=== PATIENT | female | born 1985 | race Caucasian/White ===

== ENCOUNTER 2023-11-24 22:21 | Emergency (ER) | payer OTHER, SELFPAY ==
[2023-11-24 22:31] VITALS: BP 157/100
--- NOTE | 2023-11-24 23:05 | ED.GENMED ---
History of Present Illness
General
Chief Complaint: Chest Pain
Source: patient and spouse
Time Seen by Provider: 11/24/23 22:47
Travel History
Have you had any contact with someone who has COVID-19?: No
Do you have any symptoms of coronavirus? Fever > 100 degrees, chills, cough, shortness of breath, sore throat, loss of taste or smell, muscle aches, or headache?: No
History of Present Illness
History of Present Illness:
This patient is a 38-year-old female with a history of medication induced long QT who presents emergency department with complaints of an episode earlier today while in the car where she felt a 'weird' feeling in the center and left side of her
chest which was then associated with numbness and tingling throughout her left upper extremity. This lasted about 5 to 10 minutes and then went away. She further defines this weird feeling as a 'fluttering' feeling all over associated with mild
dyspnea. The symptoms went away completely and then around 1015 tonight while sitting on the couch she developed the same symptoms associated with nausea and chills. When she stood up she felt lightheaded. She says she checked her pulse and it
was 60. She is now asymptomatic. Of note, patient went for a hike yesterday, total 2.6 miles, took just under 2 hours, and she noted that her heart rate was elevated. She needed to stop to get her heart rate to go down. While it was elevated she
had a sensation that her heart was 'pounding' associated with numbness and tingling in her left arm lasting a few minutes. She did not have chest pain pressure or discomfort at that time. Patient denies radiation of today's 'weird' feeling in her
chest, it is not pleuritic in nature, she denies leg swelling, recent immobilization, recent trauma. She does note a family history of CAD but is unclear if it was before the age of 50. Patient has a history of diabetes, hypercholesterolemia, no
prior history of cardiac illness.
Past History
Past History
ED Past Medical History: IDDM, Other (Prolonged QT) and Other (Exercise-induced asthma, prediabetes on metformin, hyperlipidemia)
ED Past Surgical History: Orthopedic
Patient has exhibited threatening behavior?: No
PSI?: No
Social History
Tobacco: Non-smoker
Alcohol: Occasional
Drug: None
Personal: Single
Living: with family
Family History
Family History: Other (CHF, hypertension, diabetes, asthma)
Phy Exam
Physical Exam
Physical Exam:
GENERAL: Alert , in no apparent distress
EYE: pupils equal and reactive
NECK: Supple, no significant adenopathy.
ENT: o/p clr, mmm.
CARDIAC: Regular rate and rhythm .
LUNGS: Clear breath sounds bilaterally, no acute respiratory distress, no wheezes/rales/rhonchi
ABDOMEN: Soft, without focal tenderness, no r/g, no cvat
NEUROLOGICAL: Alert and oriented, no focal neuro deficits
SKIN: Warm and dry, skin intact.
MUSCULOSKELETAL: No edema, well perfused.
PSYCH: Normal and appropriate interaction.
Scores
Heart Score for Chest Pain Patients
STEMI patient?: Not applicable
Course
Orders/Labs/Results
Orders:
Orders
11/24/23 22:23
EKG [Electrocardiogram (*1)] Urgent
Reason for Study: Chest Pain
EKG- Treatment ONCE
11/24/23 23:05
Cardiac Monitoring- Treatment ONCE
11/24/23 23:09
Complete Blood Count/No Diff Urgent
Comprehensive Metabolic Panel Urgent
Troponin I Urgent
11/25/23 03:01
Troponin I Urgent
Abnormal Lab Results
11/24/23
23:09
Hct 35.2 L %
(37.0-47.0)
MCV 75.1 L fL
(81.0-99.0)
MCH 25.8 L pg
(27.0-31.0)
RDW 14.6 H %
(11.5-14.5)
MPV 11.0 H fL
(7.4-10.4)
Sodium 132 L mmol/L
(135-145)
Glucose 213 H mg/dl
(70-99)
11/24/23 23:09
11/24/23 23:09
Vital Signs
Initial and Last Documented VS:
Initial Vital Signs
Temp Pulse Resp BP Pulse Ox
98.4 F 85 16 157/100 99
11/24/23 22:31 11/24/23 22:31 11/24/23 22:31 11/24/23 22:31 11/24/23 22:31
Last Documented Vital Signs
Temp Pulse Resp BP Pulse Ox
98.4 F 71 16 102/69 95
11/24/23 22:31 11/25/23 04:15 11/25/23 04:15 11/25/23 04:00 11/25/23 04:15
*Critical Care Note
Total Time (30-74mins, 75-104mins- exclusive of procedures): Not Applicable
Update Note
Update Note:
Patient presents to the Emergency Department with
Number and Complexity of Problems Addressed at the Encounter
� Chronic conditions affecting care:
� Acute Exacerbation and/or Progression of Chronic Illness:
� Differential Diagnosis includes:
Amount and/or Complexity of Data to be Reviewed and Analyzed
� I performed an independent evaluation of and my interpretation is:
EKG: Read by me, normal sinus rhythm, no acute ischemia
CT:
Xrays:
Laboratory Studies:
Other:
� Review of other/old records reveals: Records from prior hospitalization for COVID reviewed by me
� Clinical information was obtained by an independent historian: who is at bedside
� Prescriptions/Medications Considered but not given:
� Further testing considered but not performed:
Risk of Complications and/or Morbidity or Mortality of Patient Management
� Social determinants of health affecting care:
� Discussion with other providers (PCP, Hospitalists, Consultants, etc):
� Escalation of care including admission/observation vs risk of discharge considered:
ED Attending Note
-
Portions of this chart may have been created with voice recognition software.� Occasional wrong word or��sound alike� substitutions may have occurred due to the inherent limitations of voice recognition software.
Discharge Plan
Departure
Patient Disposition: Home (Routine Discharge)
Date of Disposition: 11/25/23
Time of Disposition: 03:42
Patient with high blood pressure during this ER visit?: Yes
Condition: Good
Discharge Problem:
Chest pain
Instructions: BLOOD PRESSURE, Chest Pain
Prescriptions:
No Action
albuterol sulfate 1 PUFF HFA aerosol inhaler
1 puff inhalation R Q4HPRN PRN (Reason: SOB)
multivitamin with folic acid [Tab-A-Sherice] 1 TABLET tablet
1 tab PO DAILY
ibuprofen 400 MG tablet
400 mg PO Q2HPRN PRN (Reason: fever)
(DME) pen needle, diabetic [Unifine Pentips] 1 EACH needle
1 ea SC QID Qty: 150 2RF
prochlorperazine maleate [Compazine] 10 mg Tablet
10 mg PO Q6H PRN (Reason: nausea)
alprazolam 0.5 mg Tablet
0.5 mg PO PRN PRN (Reason: prior to dentist)
metformin 500 mg Tablet,Er Jason.Retention 24 Hr
2,000 mg PO BID
Referrals:
Stevenson Encinas MD [Active] - Next open appointment
Brittney Elliott PA-C [Family Provider] -
Activity Restrictions/Additional Instructions:
IF YOU DEVELOP INCREASING/NEW/RECURRENT PAIN, ANY TROUBLE BREATHING, FEVER, VOMITING, OR OTHER WORRISOME SIGNS, GO TO THE ER IMMEDIATELY!
Interventions
Interventions:
*Risk Screen - Suicide Last Done: 11/24/23 22:31
*General Assessment Last Done: 11/24/23 22:31
*Neglect/Abuse Screening Last Done: 11/24/23 22:31
ED- Fall Risk Assessment Last Done: 11/24/23 23:06
*Nursing Disposition Last Done: 11/25/23 04:26
ED- Cardiac Assessment Last Done: 11/24/23 23:06
Discharge Date and Time
Discharge Date/Time: 11/25/23 04:27
[2023-11-24 23:15] VITALS: BP 137/88
[2023-11-24 23:20] LABS: Hematocrit 35.2 % (37.0-47.0); Hemoglobin 12.1 g/dL (12.0-16.0); Mean Corp Hgb Conc. 34.4 g/dL (33.0-37.0); Mean Corpuscular Hgb 25.8 pg (27.0-31.0); Mean Corpuscular Volume 75.1 fL (81.0-99.0); Platelet Count 330 10^3/uL (130-400); Red Blood Cell Count 4.69 10^6/uL (4.20-5.40); Red Cell Dist. Width 14.6 % (11.5-14.5); White Blood Cell Count 10.7 10^3/uL (4.8-10.8)
[2023-11-24 23:33] LABS: ALT (SGPT) 30 U/L (0-35); AST (SGOT) 25 U/L (14-36); Albumin 4.3 g/dl (3.5-5.0); Alkaline Phosphatase 77 U/L (38-126); Blood Urea Nitrogen 14 mg/dl (7-17); Calcium 9.3 mg/dl (8.4-10.2); Carbon Dioxide 22 mmol/L (22-30); Chloride 103 mmol/L (98-107); Estimated Creatinine Clearance 123 ml/min; Glucose 213 mg/dl (70-99); Potassium 3.8 mmol/L (3.5-5.1); Sodium 132 mmol/L (135-145); Total Bilirubin 0.3 mg/dl (0.2-1.3); Total Protein 6.8 g/dl (6.3-8.2); eGFR > 60.00
[2023-11-24 23:48] LABS: Troponin I < 0.012 ng/ml
[2023-11-25] VITALS: BP 122/79
[2023-11-25 01:00] VITALS: BP 112/77
[2023-11-25 03:00] VITALS: BP 117/75
[2023-11-25 03:33] LABS: Troponin I < 0.012 ng/ml
[2023-11-25 04:00] VITALS: BP 102/69
== END 2023-11-25 04:27 | disposition home or self-care (01) ==
LOC: EMR 22:21
PROVIDERS: EMERGENCY PHYSICIAN Emergency Medicine; FAMILY PHYSICIAN Physician Assistant Medical
DX: R07.89 Other chest pain (principal); R20.0 Anesthesia of skin; R20.2 Paresthesia of skin; R06.00 Dyspnea, unspecified; R11.0 Nausea; R68.83 Chills (without fever); R42 Dizziness and giddiness; R03.0 Elevated blood-pressure reading, without diagnosis of hypertension; I45.81 Long QT syndrome; E11.9 Type 2 diabetes mellitus without complications; E78.5 Hyperlipidemia, unspecified; Z79.4 Long term (current) use of insulin; Z82.49 Family history of ischemic heart disease and other diseases of the circulatory system; Z88.8 Allergy status to other drugs, medicaments and biological substances
CPT/HCPCS: 99283; 80053; 84484; 85027; 93005

== ENCOUNTER 2024-05-05 10:45 | Emergency (ER) | payer OTHER, SELFPAY ==
[2024-05-05 11:02] VITALS: BP 143/81
[2024-05-05 12:02] VITALS: BP 118/73
--- NOTE | 2024-05-05 12:16 | ED.GENMED ---
History of Present Illness
General
Chief Complaint: Chest Pain
Time Seen by Provider: 05/05/24 11:25
History of Present Illness
History of Present Illness:
39-year-old female with history of diabetes and hyperlipidemia presenting to the emergency department for chest pain. Patient reports for the past few weeks she has been having chest discomfort at nighttime, and has noticed that her heart rate has
been low. Today, chest pain lasted into the day which concerned her. She called her rim buster who advised that she come to the hospital. Denies any known personal cardiac history, however has had personal cardiac history. Still her primary
care doctor regarding the symptoms, thought may be secondary to anxiety, had been started on Xanax. She has been undergoing a lot of stress at home, medical issues with daughter. Denies any history of blood clots, recent surgery, recent travel,
exogenous estrogen. Any recent illness or fever. Denies any cough. Denies abdominal pain or GI symptoms. Denies additional acute medical complaints.
Past History
Past History
ED Past Medical History: IDDM, Other (Prolonged QT) and Other (Exercise-induced asthma, prediabetes on metformin, hyperlipidemia)
ED Past Surgical History: Orthopedic
Patient has exhibited threatening behavior?: No
PSI?: No
Social History
Tobacco: Non-smoker
Alcohol: Occasional
Drug: None
Personal: Single
Living: with family
Family History
Family History: Other (CHF, hypertension, diabetes, asthma)
Phy Exam
Physical Exam
Physical Exam:
General: Well-appearing, no clinical signs of dehydration, nontoxic and in no acute distress
HEENT: protecting airway
Neck: appears supple
CV: Normal heart rate, regular rhythm, no evidence of cyanosis
Resp: No accessory muscle use, no increased work of breathing, lungs clear to auscultation bilaterally
Abd: Soft and non-distended, no tenderness to palpation
Extremities: No deformities, no swelling, no erythema
Neuro: alert, no focal neurologic deficit
: deferred
Rectal: deferred
Psych: Normal affect
Skin: Intact
Scores
Heart Score for Chest Pain Patients
STEMI patient?: No
History: Slightly or Non-Suspicious
ECG: Normal
Age: </= 45 years
Risk Factors: 1 or 2 Risk Factors
Troponin: </= Normal Limit
Heart Score for Chest Pain Patients: 1
Heart Score Risk: 2.5% MACE over next 6 weeks
Course
Orders/Labs/Results
Orders:
Orders
05/05/24 11:06
ECG [Electrocardiogram (*1)] Urgent
Reason for Study: Chest Pain
05/05/24 11:07
EKG- Treatment ONCE
05/05/24 12:06
CR Chest - 2 Views Urgent
Comment:
Reason For Exam: chest pain
05/05/24 12:10
Complete Blood Count/With Diff Urgent
Comprehensive Metabolic Panel Urgent
Troponin I Urgent
Abnormal Lab Results
05/05/24
12:10
Hct 36.7 L %
(37.0-47.0)
MCV 77.1 L fL
(81.0-99.0)
MCH 25.2 L pg
(27.0-31.0)
MCHC 32.7 L g/dL
(33.0-37.0)
RDW 14.6 H %
(11.5-14.5)
MPV 11.0 H fL
(7.4-10.4)
Glucose 170 H mg/dl
(70-99)
05/05/24 12:10
05/05/24 12:10
Vital Signs
Initial and Last Documented VS:
Initial Vital Signs
Temp Pulse Resp BP Pulse Ox
99.5 F 75 18 143/81 97
05/05/24 11:02 08/19/24 11:02 05/05/24 11:02 05/05/24 11:02 05/05/24 11:02
Last Documented Vital Signs
Temp Pulse Resp BP Pulse Ox
99.5 F 67 13 118/73 95
05/05/24 11:02 05/05/24 12:45 05/05/24 12:45 05/05/24 12:02 05/05/24 12:45
MDM/Problems Addressed
MDM/Problems Addressed:
39-year-old female with history of diabetes and hyperlipidemia presenting to the emergency department for chest pressure. Vital signs within normal limits.
On exam, patient well-appearing, no acute distress or discomfort. Benign cardiac and pulmonary exam. Patient EKG obtained prior to my assessment, nonischemic without significant change from prior. Patient however does have some cardiac risk
factors. For this reason we will obtain laboratory analysis including troponin. Patient PERC negative without concern for PE. Patient notes that she has had low heart rate at nighttime while in bed. Suspect that this could be normal while at
rest. Low suspicion for sick sinus syndrome. No significant tachycardia. Will continue to closely monitor.
13:30 -patient's labs are unremarkable, undetectable troponin. Patient low risk by heart score. At this time, feel stable for discharge, remains hemodynamically stable. Advised outpatient cardiology follow-up if symptoms are persisting for
potential stress testing versus Holter monitor. Strict return precautions communicated and patient verbalized understanding.
*EKG
Interpreted by ED Provider?: Yes
EKG Intrepretation Date: 05/05/24
EKG Intrepretation Time: 12:19
Interpretation: normal
Comparison EKG: no changes (11/24/23)
Heart Rate: 85
Rate: normal
Rhythm: sinus
[place]: normal axis
Interval: normal interval
QRS Pattern: normal QRS
Ischemia: no ischemia
*Critical Care Note
Total Time (30-74mins, 75-104mins- exclusive of procedures): Not Applicable
ED Attending Note
-
Portions of this chart may have been created with voice recognition software.� Occasional wrong word or��sound alike� substitutions may have occurred due to the inherent limitations of voice recognition software.
Discharge Plan
Departure
Prescriptions:
No Action
albuterol sulfate 1 PUFF HFA aerosol inhaler
1 puff inhalation R Q4HPRN PRN (Reason: SOB)
multivitamin with folic acid [Tab-A-Sherice] 1 TABLET tablet
1 tab PO DAILY
ibuprofen 400 MG tablet
400 mg PO Q2HPRN PRN (Reason: fever)
(DME) pen needle, diabetic [Unifine Pentips] 1 EACH needle
1 ea SC QID Qty: 150 2RF
prochlorperazine maleate [Compazine] 10 mg Tablet
10 mg PO Q6H PRN (Reason: nausea)
alprazolam 0.5 mg Tablet
0.5 mg PO PRN PRN (Reason: prior to dentist)
metformin 500 mg Tablet,Er Jason.Retention 24 Hr
2,000 mg PO BID
Referrals:
Brittney Elliott PA-C [Family Provider] -
Interventions
Interventions:
*Risk Screen - Suicide Last Done: 05/05/24 11:02
*General Assessment Last Done: 05/05/24 11:02
*Neglect/Abuse Screening Last Done: 05/05/24 11:02
ED- Fall Risk Assessment Last Done: 05/05/24 12:09
*ED COVID-19 Vaccine History Last Done: 05/05/24 12:09
ED- Cardiac Assessment Last Done: 05/05/24 12:09
Discharge Date and Time
Print Language: ARGENTINE
[2024-05-05 12:27] LABS: % Basophils 0.6 % (0-2); % Eosinophils 1.7 % (0-6); % Immature Granulocytes 0.4 % (0-0.5); % Lymphocytes 32.3 % (20.5-51.1); % Monocytes 6.3 % (1.7-9.3); % Neutrophils 58.7 % (42.2-75.2); Absolute Eosinophils 0.1 10^3/uL (0-0.7); Absolute Lymphocytes 2.3 10^3/uL (1.2-3.4); Absolute Monocytes 0.4 10^3/uL (0.1-0.6); Absolute Neutrophils 4.1 10^3/uL (1.4-6.5); Hematocrit 36.7 % (37.0-47.0); Mean Corp Hgb Conc. 32.7 g/dL (33.0-37.0); Mean Corpuscular Hgb 25.2 pg (27.0-31.0); Mean Corpuscular Volume 77.1 fL (81.0-99.0); Nucleated Red Blood Cells % 0 %; Platelet Count 287 10^3/uL (130-400); Red Blood Cell Count 4.76 10^6/uL (4.20-5.40); Red Cell Dist. Width 14.6 % (11.5-14.5)
[2024-05-05 12:51] LABS: Troponin I < 0.012 ng/ml
[2024-05-05 12:58] LABS: ALT (SGPT) 19 U/L (0-35); AST (SGOT) 19 U/L (14-36); Albumin 4.5 g/dl (3.5-5.0); Alkaline Phosphatase 63 U/L (38-126); Blood Urea Nitrogen 13 mg/dl (7-17); Calcium 9.8 mg/dl (8.4-10.2); Carbon Dioxide 25 mmol/L (22-30); Chloride 103 mmol/L (98-107); Glucose 170 mg/dl (70-99); Potassium 4.1 mmol/L (3.5-5.1); Sodium 137 mmol/L (135-145); Total Bilirubin 0.4 mg/dl (0.2-1.3); Total Protein 6.8 g/dl (6.3-8.2); eGFR > 60.00
== END 2024-05-05 13:51 | disposition home or self-care (01) ==
LOC: EMR 10:45
PROVIDERS: EMERGENCY PHYSICIAN Student in an Organized Health Care Education/Training Program; FAMILY PHYSICIAN Physician Assistant Medical
DX: R07.89 Other chest pain (principal); E11.9 Type 2 diabetes mellitus without complications; E78.5 Hyperlipidemia, unspecified; Z73.3 Stress, not elsewhere classified; Z63.8 Other specified problems related to primary support group; J45.998 Other asthma; Z79.4 Long term (current) use of insulin; Z88.8 Allergy status to other drugs, medicaments and biological substances
CPT/HCPCS: 99283; 71046; 80053; 84484; 85025; 93005

== ENCOUNTER → 2024-08-05 09:49 | Outpatient (REF) | payer OTHER, SELFPAY | LOC: RCS 09:49 | PROVIDERS: ATTENDING PHYSICIAN Physician Assistant Medical; FAMILY PHYSICIAN Physician Assistant Medical | DX: R07.9 Chest pain, unspecified (principal); E11.9 Type 2 diabetes mellitus without complications; E78.2 Mixed hyperlipidemia | CPT/HCPCS: 93017; 93350 ==

== ENCOUNTER 2025-01-28 20:05 | Emergency (ER) | payer OTHER, SELFPAY ==
[2025-01-28 20:09] VITALS: BP 165/86; BMI 34.6
[2025-01-28 20:29] LABS: % Basophils 0.5 % (0-2); % Eosinophils 2.3 % (0-6); % Immature Granulocytes 0.3 % (0-0.5); % Lymphocytes 34.8 % (20.5-51.1); % Monocytes 6.4 % (1.7-9.3); % Neutrophils 55.7 % (42.2-75.2); Absolute Basophils 0.1 10^3/uL (0-0.2); Absolute Eosinophils 0.3 10^3/uL (0-0.7); Absolute Lymphocytes 3.8 10^3/uL (1.2-3.4); Absolute Monocytes 0.7 10^3/uL (0.1-0.6); Absolute Neutrophils 6.1 10^3/uL (1.4-6.5); Hematocrit 34.8 % (37.0-47.0); Hemoglobin 11.2 g/dL (12.0-16.0); Mean Corp Hgb Conc. 32.2 g/dL (33.0-37.0); Mean Corpuscular Hgb 24.1 pg (27.0-31.0); Mean Platelet Volume 11.1 fL (7.4-10.4); Nucleated Red Blood Cells % 0 %; Platelet Count 312 10^3/uL (130-400); Red Blood Cell Count 4.64 10^6/uL (4.20-5.40); Red Cell Dist. Width 15.4 % (11.5-14.5); White Blood Cell Count 10.9 10^3/uL (4.8-10.8)
[2025-01-28 20:44] LABS: ALT (SGPT) 17 U/L (0-35); AST (SGOT) 17 U/L (14-36); Alkaline Phosphatase 53 U/L (38-126); Blood Urea Nitrogen 14 mg/dl (7-17); Calcium 9.9 mg/dl (8.4-10.2); Carbon Dioxide 23 mmol/L (22-30); Chloride 107 mmol/L (98-107); Estimated Creatinine Clearance 100 ml/min; Glucose 149 mg/dl (70-99); Potassium 3.9 mmol/L (3.5-5.1); Sodium 139 mmol/L (135-145); Total Bilirubin 0.3 mg/dl (0.2-1.3); Total Protein 7.2 g/dl (6.3-8.2); eGFR > 60.00
[2025-01-28 20:54] LABS: Troponin I < 0.012 ng/ml
[2025-01-28 21:00] VITALS: BP 138/73
[2025-01-28 21:13] LABS: HCG, Serum Qualitative Screen Negative
--- NOTE | 2025-01-28 21:56 | ED.GENMED ---
History of Present Illness
General
Chief Complaint: Dizziness
Source: patient and ambulance crew
Exam Limitations: none
Time Seen by Provider: 01/28/25 21:35
Nursing documentation reviewed up to this point in time: agreed with
History of Present Illness
History of Present Illness:
39-year-old female presents with department due to feeling lightheaded and nauseous. She has a history of prolonged QT. She has had episodes like this in the past.
Past History
Past History
ED Past Medical History: IDDM, Other (Prolonged QT) and Other (Exercise-induced asthma, prediabetes on metformin, hyperlipidemia)
ED Past Surgical History: Orthopedic
Patient has exhibited threatening behavior?: No
PSI?: No
Social History
Tobacco: Non-smoker
Alcohol: Occasional
Drug: None
Personal: Single
Living: with family
Family History
Family History: Other (CHF, hypertension, diabetes, asthma)
Review of Systems
Review of Systems
Allergies reviewed?: Yes
All Other Systems: Not applicable
Constitutional: Reports no symptoms
EENT: Reports no symptoms
Respiratory: Reports no symptoms
Cardiac: Reports chest pain and palpitations
ABD/GI: Reports nausea; Denies vomiting
: Reports no symptoms
Musculoskeletal: Reports no symptoms
Skin: Reports no symptoms
Neurological: Reports no symptoms
Endocrine: Reports no symptoms
Hematologic/Lymphatic: Reports no symptoms
Psychiatric: Reports no symptoms
Phy Exam
Physical Exam
Physical Exam:
Physical Exam
General: no apparent distress, not acutely ill
Neck: supple. no meningeal signs. normal posterior pharynx
Heart: s1/s2 regular rate and rhythm, no murmur. equal radial
pulses.
HEENT: Pupils equal round reactive to light, EOMI
Lungs: no acute respiratory distress. clear bilaterally
Abdomen: normal bowel sounds. not tender. no CVAT
Neuro: alert and oriented. no focal neurological deficits cranial nerves II through XII intact
Skin: no rash
Psychiatric: well kept. interactive and cooperative
Extremities: no edema. no calf tenderness. negative homans. good distal pulses
Course
Orders/Labs/Results
Orders:
Orders
01/28/25 20:06
Electrocardiogram (*1) Urgent
Reason for Study: QTc Monitoring
01/28/25 20:07
EKG- Treatment ONCE
Test Result ONCE
01/28/25 20:21
Complete Blood Count/With Diff Urgent
Comprehensive Metabolic Panel Urgent
HCG, Serum Qualitative Screen Urgent
Troponin I Urgent
01/28/25 22:00
D-Dimer Urgent
Abnormal Lab Results
01/28/25
20:21
WBC 10.9 H 10^3/uL
(4.8-10.8)
Hgb 11.2 L g/dL
(12.0-16.0)
Hct 34.8 L %
(37.0-47.0)
MCV 75.0 L fL
(81.0-99.0)
MCH 24.1 L pg
(27.0-31.0)
MCHC 32.2 L g/dL
(33.0-37.0)
RDW 15.4 H %
(11.5-14.5)
MPV 11.1 H fL
(7.4-10.4)
Absolute Lymphs (auto) 3.8 H 10^3/uL
(1.2-3.4)
Absolute Monos (auto) 0.7 H 10^3/uL
(0.1-0.6)
Glucose 149 H mg/dl
(70-99)
01/28/25 20:21
01/28/25 20:21
Vital Signs
Initial and Last Documented VS:
Initial Vital Signs
Temp Pulse Resp BP Pulse Ox
98.5 F 87 14 165/86 100
01/28/25 20:09 01/28/25 20:09 01/28/25 20:09 01/28/25 20:09 01/28/25 20:09
Last Documented Vital Signs
Temp Pulse Resp BP Pulse Ox
98.5 F 80 14 126/63 94
01/28/25 20:09 01/28/25 23:45 01/28/25 23:45 01/28/25 23:00 01/28/25 23:45
MDM/Problems Addressed
Differential Diagnosis Includes:
Dysrhythmia, PE
MDM/Problems Addressed:
Nontoxic well-appearing 39-year-old female with lightheaded feeling. Normal EKG. Troponin and D-dimer negative. Patient stable for discharge, follow-up with primary care. Return precautions given.
Chronic conditions affecting care: Arrhythmia and Asthma
*Pulse Oximetry
Patient hypoxic: no
*EKG
Interpreted by ED Provider?: Yes
EKG Intrepretation Date: 01/28/25
EKG Intrepretation Time: 20:12
Interpretation: normal
Comparison EKG: changes noted
Heart Rate: 80
Rate: normal
Rhythm: sinus
[place]: normal axis
Interval: normal interval
QRS Pattern: normal QRS
Ischemia: no ischemia
*Tax Evaluator Interpretation
Rate: normal
Interpretation: normal
Heart Rate: 75
Rhythm: sinus
*Critical Care Note
Total Time (30-74mins, 75-104mins- exclusive of procedures): Not Applicable
Data Reviewed
Further Testing Considered But Not Given:
CT chest not indicated
Patient Management
Social determinants of health affecting care: Living situation and Strong social support
Escalation/DeEscalation of care consider admission/obs:
Admit not indicated
ED Attending Note
-
Portions of this chart may have been created with voice recognition software.� Occasional wrong word or��sound alike� substitutions may have occurred due to the inherent limitations of voice recognition software.
Discharge Plan
Departure
Patient Disposition: Home (Routine Discharge)
Date of Disposition: 01/28/25
Time of Disposition: 23:55
Patient with high blood pressure during this ER visit?: Yes
Condition: Good
Discharge Problem:
Light-headedness
Instructions: Dizziness in adults - ED discharge instructions, BLOOD PRESSURE
Prescriptions:
No Action
albuterol sulfate 1 PUFF HFA aerosol inhaler
1 puff inhalation R Q4HPRN PRN (Reason: SOB)
multivitamin with folic acid [Tab-A-Sherice] 1 TABLET tablet
1 tab PO DAILY
ibuprofen 400 MG tablet
400 mg PO Q2HPRN PRN (Reason: fever)
(DME) pen needle, diabetic [Unifine Pentips] 1 EACH needle
1 ea SC QID Qty: 150 2RF
prochlorperazine maleate [Compazine] 10 mg Tablet
10 mg PO Q6H PRN (Reason: nausea)
alprazolam 0.5 mg Tablet
0.5 mg PO PRN PRN (Reason: prior to dentist)
metformin 500 mg Tablet,Er Jason.Retention 24 Hr
2,000 mg PO BID
Referrals:
Brittney Elliott PA-C [Family Provider] - Call in 1-3 days for appt
Interventions
Interventions:
*Risk Screen - Suicide Last Done: 01/28/25 20:09
*General Assessment Last Done: 01/28/25 20:09
*Neglect/Abuse Screening Last Done: 01/28/25 20:09
*ED- Fall Risk Assessment Last Done: 01/28/25 23:41
*ED COVID-19 Vaccine History Last Done: 01/28/25 20:24
ED- Neurological Assessment Last Done: 01/28/25 20:24
ED Swallowing Screen Last Done: 01/28/25 20:24
Discharge Date and Time
Print Language: RWANDAN
[2025-01-28 22:00] VITALS: BP 149/86
[2025-01-28 22:26] LABS: D-Dimer < 0.27 ug/mlFEU (0.00-0.50)
[2025-01-28 23:00] VITALS: BP 126/63
[2025-01-29] VITALS: BP 126/75
== END 2025-01-29 00:25 | disposition home or self-care (01) ==
LOC: EMR 20:05
PROVIDERS: EMERGENCY PHYSICIAN Emergency Medicine; FAMILY PHYSICIAN Physician Assistant Medical
DX: R42 Dizziness and giddiness (principal); R11.0 Nausea; R00.2 Palpitations; R03.0 Elevated blood-pressure reading, without diagnosis of hypertension; R94.31 Abnormal electrocardiogram [ECG] [EKG]; E11.9 Type 2 diabetes mellitus without complications; E78.5 Hyperlipidemia, unspecified; J45.998 Other asthma; Z87.01 Personal history of pneumonia (recurrent); Z79.4 Long term (current) use of insulin; Z88.8 Allergy status to other drugs, medicaments and biological substances
CPT/HCPCS: 99283; 80053; 84484; 84703; 85025; 85379; 93005

== ENCOUNTER → 2025-02-24 09:16 | Outpatient (REF) | payer OTHER, SELFPAY | LOC: HWWDC 09:16 | PROVIDERS: ATTENDING PHYSICIAN Physician Assistant Medical | DX: Z12.31 Encounter for screening mammogram for malignant neoplasm of breast (principal) | CPT/HCPCS: 77063; 77067 ==